=== PATIENT | female | born 1985 ===

== ENCOUNTER 2017-10-30 02:46 | Emergency (ER) | payer OTHER ==
[2017-10-30 03:09] VITALS: BP 144/92; PULSE 94; RESP 16; TEMP 98.6; O2SAT 100
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
[2017-10-30] MEDS ORDERED: Naproxen 500 MG TAB PO ONE (05:53)
[2017-10-30] MEDS: Naproxen 500 MG TAB PO ONE (05:55)
--- NOTE | 2017-10-30 08:49 | RAD ---
PROCEDURE: Cervical Spine Radiographs. HISTORY: Pain. COMPARISON: None. FINDINGS: BONES: Alignment maintained. No fracture. Dens Intact. DISC SPACES: Normal. SOFT TISSUES: Normal. No prevertebral soft tissue swelling. OTHER FINDINGS: None. IMPRESSION: Unremarkable cervical spine radiographs. If symptoms persist or worsen follow-up CT or MRI is advised.
--- NOTE | 2017-10-30 08:54 | RAD ---
PROCEDURE: Radiographs of the Lumbar Spine. HISTORY: pain COMPARISON: No prior. FINDINGS: BONES: There is a mild grade 1 spondylolisthesis interrupting the normal lumbar curvature, grade 1. Etiology of spondylolisthesis is not definite however oblique radiography or cross-sectional lumbar spinal imaging can be performed for further characterization. Vertebral body heights are normal. DISC SPACES: Mild disc height loss is seen at L5-S1 with remaining disc heights normal. OTHER FINDINGS: None. IMPRESSION: Grade 1 spondylolisthesis L5-S1. Remainder the examination appears unremarkable. Further characterization can be provided by CT or MRI as clinically warranted.
== END 2017-10-30 06:05 | disposition home or self-care (01) ==
LOC: H.ER 02:46
DX: M54.5 Low back pain (principal); M54.2 Cervicalgia; V43.62XA Car passenger injured in collision with other type car in traffic accident, initial encounter; Y92.410 Unspecified street and highway as the place of occurrence of the external cause; Z88.0 Allergy status to penicillin